=== PATIENT | female | born 1970 | race Caucasian/White ===

== ENCOUNTER 2017-11-23 19:07 | Emergency (ER) | payer OTHER ==
[~2017-11-23] VITALS: Ht 172.7 cm; Wt 80.7 kg
[2017-11-23 19:16] VITALS: BP 116/71
--- NOTE | 2017-11-23 19:20 | NUR ---
PT. AMBULATED TO [facility]
--- NOTE | 2017-11-23 21:30 | NUR ---
PT TAKEN TO BED 11
--- NOTE | 2017-11-23 21:30 | NUR ---
Pt presents to ED with x3 months of GRIFFITH on left side of head. Pt states GRIFFITH is located behind left eye, left temporal area, and behind left ear. Pt states pain is pressure like and causes blurred vision when pain is at its worst. At this time, pt states no blurred vision, no n/v. A&Ox4. VSS, ER MD aware. Continue to monitor.
[2017-11-23] MEDS ORDERED: NACL 0.9% 1,000 ML IV ONE (22:17)
[2017-11-23] MEDS ORDERED: PROCHLORPERAZINE 10 MG/2 ML VIAL IVP ONE (22:20)
[2017-11-23] MEDS ORDERED: diphenhydrAMINE 50 MG/ML VIAL IVP ONE (22:20)
[2017-11-23 23:50] VITALS: BP 116/71
--- NOTE | 2017-11-23 23:50 | NUR ---
Patient discharged with v/s stable with pain decreased. Written and verbal after care instructions given and explained. Patient alert, oriented and verbalized understanding of instructions. Ambulatory with steady gait. All questions addressed prior to discharge. ID band removed. Patient advised to follow up with PMD. Rx of Motrin given. Patient educated on indication of medication including possible reaction and side effects. Opportunity to ask questions provided and answered.
== END 2017-11-23 23:50 | disposition home or self-care (01) ==
LOC: MED 19:07
DX: R51 Headache (principal)
CPT/HCPCS: 96361; 96374; 96375; 99284; J0780; J1200; J7030; 81002; 81025

== ENCOUNTER 2018-03-12 10:18 | Emergency (ER) | payer OTHER ==
[~2018-03-12] VITALS: Ht 160 cm; Wt 78.9 kg
[2018-03-12 10:23] VITALS: BP 105/61
[2018-03-12] MEDS: NACL 0.9% 1,000 ML IV ONE (10:59)
[2018-03-12 11:22] LABS: BASOPHILS % (AUTO) 0.5 % (0.0-2.0); EOSINOPHILS % (AUTO) 1.7 % (0.0-4.0); LYMPHOCYTES # (AUTO) 0.8 K/uL (2.5-16.5); LYMPHOCYTES % (AUTO) 28.5 % (20.5-51.1); MEAN CORPUSCULAR HEMOGLOBIN 29 pg (27-31); MEAN CORPUSCULAR HGB CONC 33 g/dL (33-37); MONOCYTES # (AUTO) 0.2 K/uL (0.8-1.0); MONOCYTES % (AUTO) 6.4 % (1.7-9.3); NEUTROPHILS # (AUTO) 1.8 K/uL (1.8-7.7); NEUTROPHILS % (AUTO) 62.9 % (42.2-75.2); RED CELL DISTRIBUTION WIDTH 17.4 % (11.6-13.7); WHITE BLOOD COUNT (AUTO) 2.9 K/uL (4.8-10.8)
[2018-03-12 11:27] LABS: ANION GAP 13.6 (8-16); CARBON DIOXIDE 24.3 mmol/L (21-32); CREATININE 0.7 mg/dL (0.6-1.3); POTASSIUM 3.9 mmol/L (3.5-5.1)
[2018-03-12 11:32] LABS: ALBUMIN 3.6 g/dL (3.4-5.0); TOTAL BILIRUBIN 2.5 mg/dL (0.0-1.0)
[2018-03-12 11:33] LABS: HEMATOCRIT 16.3 % (36-48); HEMOGLOBIN 5.5 g/dL (12.0-16.0); PLATELET COUNT (AUTO) 28 K/uL (140-450)
[2018-03-12 11:49] LABS: APPEARANCE,URINE CLEAR (CLEAR); BILIRUBIN,URINE NEGATIVE (NEGATIVE); BLOOD, URINE NEGATIVE (NEGATIVE); COLOR,URINE YELLOW (YELLOW); LEUKOCYTE ESTERASE ,URINE NEGATIVE (NEGATIVE); NITRITE, URINE NEGATIVE (NEGATIVE); PH,URINE 7.5 (5.0-9.0); UGLUCOSE NEGATIVE (NEGATIVE)
[2018-03-12 11:57] LABS: PROTHROMBIN TIME 11.6 secs (10.8-13.4)
[2018-03-12 12:06] LABS: RBC,URINE 0-5 (RARE) /HPF (0-5); WBC,URINE 0-5 (RARE) /HPF (0-5)
[2018-03-12 15:51] VITALS: BP 102/62
[2018-03-13 14:08] LABS: LACTATE DEHYDROGENASE 349 IU/L (0-214)
[2018-03-14 12:40] LABS: ANTI-NUCLEAR ANTIBODY,DIRECT Negative (Negative)
== END 2018-03-12 15:37 | disposition short-term general hospital (02) ==
LOC: MED 10:18
DX: D61.818 Other pancytopenia (principal); R16.1 Splenomegaly, not elsewhere classified; I10 Essential (primary) hypertension; Z87.891 Personal history of nicotine dependence
CPT/HCPCS: 36415; 71045; 76700; 80053; 81001; 83010; 83625; 83690; 85025; 85610; 85730; 86038; 86160; 86870; 86886; 86900; 86901; 86920; 96360; 96361; 99285; J7030; Q0092

== ENCOUNTER 2021-07-08 08:33 | Day surgery (SDC) | payer OTHER, SELFPAY ==
[~2021-07-08] VITALS: Ht 160 cm; Wt 90.7 kg
[2021-07-08] MEDS ORDERED: fentaNYL citrate 0.05 MG/ML VIAL ONE (12:15)
[2021-07-08] MEDS ORDERED: MIDAZOLAM 5 MG/5 ML VIAL ONE (12:15)
[2021-07-08] MEDS ORDERED: MIDAZOLAM 2 MG/2 ML VIAL IVP ONE (12:35)
== END 2021-07-08 13:25 | disposition home or self-care (01) ==
LOC: MDS 08:33 → MMU 08:35 → MDS 13:25
PROVIDERS: ATTEND Internal Medicine Gastroenterology
DX: R10.13 Epigastric pain (principal); K22.2 Esophageal obstruction; F17.200 Nicotine dependence, unspecified, uncomplicated; K59.00 Constipation, unspecified; K29.70 Gastritis, unspecified, without bleeding; Z79.899 Other long term (current) drug therapy; Z20.822 Contact with and (suspected) exposure to COVID-19
CPT/HCPCS: 36415; 43239; 86677; J2250; U0003; J3010

== ENCOUNTER 2022-08-30 00:55 | Emergency (ER) | payer OTHER ==
[~2022-08-30] VITALS: Ht 157.5 cm; Wt 90.7 kg
[2022-08-30 01:10] VITALS: BP 125/77
--- NOTE | 2022-08-30 01:13 | NUR ---
TO LOBBY A/W BED AMBULATORY
[2022-08-30 01:15] VITALS: BP 125/77
[2022-08-30 01:42] LABS: APPEARANCE,URINE SL CLOUDY (CLEAR); BILIRUBIN,URINE NEGATIVE (NEGATIVE); BLOOD, URINE 1+ (NEGATIVE); COLOR,URINE YELLOW (YELLOW); LEUKOCYTE ESTERASE ,URINE 3+ (NEGATIVE); NITRITE, URINE NEGATIVE (NEGATIVE); UGLUCOSE NEGATIVE (NEGATIVE)
[2022-08-30 01:54] LABS: RBC,URINE 0-5 /HPF (0-5); WBC,URINE TOO MANY TO COUNT /HPF (0-5)
[2022-08-30] MEDS ORDERED: KETOROLAC 30 MG/ML VIAL IM ONE (03:55)
[2022-08-30] MEDS ORDERED: PHENAZOPYRIDINE 100 MG TAB PO ONE (03:55)
[2022-08-30] MEDS ORDERED: PYR100 PO (04:05)
[2022-08-30] MEDS ORDERED: CEPH-588 PO (04:05)
--- NOTE | 2022-08-30 04:18 | NUR ---
Patient discharged with v/s stable. Written and verbal after care instructions given and explained. Patient alert, oriented and verbalized understanding of instructions. Ambulatory with steady gait. All questions addressed prior to discharge. ID band removed. Patient advised to follow up with PMD. Rx of KEFLEX PYDRIDIUM given.
[2022-09-01] MEDS ORDERED: CIPR250T6 PO (17:37)
--- NOTE | 2022-09-01 17:42 | NUR ---
LATE ENTRY. RECEIVED POSITIVE URINE CULTURE. FORM GIVEN TO DR ALEJANDRO. NEW RX OF CIPRO SENT TO [facility]. DR ALEJANDRO CALLED AND LEFT A MESSAGE. FORM PLACED IN BINDER
== END 2022-08-30 04:18 | disposition home or self-care (01) ==
LOC: MED 00:55
DX: N39.0 Urinary tract infection, site not specified (principal); R30.0 Dysuria; Z79.899 Other long term (current) drug therapy
CPT/HCPCS: 81001; 87086; 96372; 99283; J1885